=== PATIENT | female | born 1960 | race Caucasian/White ===

== ENCOUNTER 2016-11-01 12:18 | Observation (INO) | payer BC, OTHER ==
--- NOTE | 2016-11-01 14:20 | ER Document Report ---
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 At 11: 15 today started having numbness in left arm radiating into left face & neck and into right neck area. Also c/o left elbow pain. No hx ME or CAV. Mother had stroke. TRAVEL OUTSIDE OF THE [place] IN LAST 30 DAYS: No - Related Data Allergies/Adverse Reactions: tetracycline Allergy (Verified 11/01/16 13:16) Past Medical History Renal/ Medical History: Denies: Hx Peritoneal Dialysis
[2016-11-01 14:42] LABS: ABSOLUTE EOSINOPHILS # (AUTO) 0.1 10^3/uL (0.0-0.6); ABSOLUTE LYMPHOCYTES (AUTO) 1.5 10^3/uL (0.5-4.7); ABSOLUTE MONOCYTES (AUTO) 0.4 10^3/uL (0.1-1.4); ABSOLUTE NEUT (AUTO) 4.5 10^3/uL (1.7-8.2); BASOPHILS % (AUTO) 0.5 % (0-2); EOSINOPHILS % (AUTO) 1.1 % (0-6); HEMATOCRIT 37.3 % (36.0-47.0); HEMOGLOBIN 12.9 g/dL (12.0-15.5); HGB HCT DIFFERENCE 1.4; LYMPHOCYTES % (AUTO) 23.6 % (13-45); MEAN CORPUSCULAR HEMOGLOBIN 32.6 pg (27.0-33.4); MEAN CORPUSCULAR HGB CONC 34.7 g/dL (32.0-36.0); MEAN CORPUSCULAR VOLUME 94 fl (80-97); RED BLOOD COUNT 3.96 10^6/uL (3.72-5.28); SEGMENTED NEUTROPHILS % (AUTO) 68.8 % (42-78); WHITE BLOOD COUNT 6.5 10^3/uL (4.0-10.5)
[2016-11-01 14:43] LABS: PROTHROMBIN TIME 12.4 SEC (11.4-15.4)
[2016-11-01 14:44] LABS: PARTIAL THROMBOPLASTIN TIME 27.4 SEC (23.5-35.8)
[2016-11-01 15:18] LABS: ALANINE AMINOTRANSFERASE 66 U/L (9-52); ALBUMIN 4.4 g/dL (3.5-5.0); ALKALINE PHOSPHATASE 75 U/L (38-126); ANION GAP 11 (5-19); ASPARTATE AMINO TRANSFERASE 64 U/L (14-36); BILIRUBIN,DIRECT 0.1 mg/dL (0.0-0.4); BILIRUBIN,TOTAL 0.8 mg/dL (0.2-1.3); BLOOD UREA NITROGEN 13 mg/dL (7-20); CALCIUM 9.2 mg/dL (8.4-10.2); CARBON DIOXIDE 28 mmol/L (22-30); CHLORIDE 99 mmol/L (98-107); CREATINE KINASE 164 U/L (30-135); CREATININE RESULT 0.83 mg/dL (0.52-1.25); GLUCOSE 98 mg/dL (75-110); POTASSIUM 3.5 mmol/L (3.6-5.0); SODIUM 137.9 mmol/L (137-145)
[2016-11-01 15:29] LABS: CREATINE KINASE MB 1.59 ng/mL (<4.55)
[2016-11-01 15:30] LABS: TROPONIN I < 0.012 ng/mL
--- NOTE | 2016-11-01 16:13 | ER Document Report ---
ED Neuro Symptoms/Deficit - General Mode of Arrival: Wheelchair Information source: Patient TRAVEL OUTSIDE OF THE [place] IN LAST 30 DAYS: No - HPI Patient complains to provider of: Paresthesia - Left arm, Weakness - Left arm. No: Speech Impairment, Vision Changes Onset: Other - 2 days ago Baseline Cognitive: Alert, oriented X 3 Alert To: Name/Voice Patient Orientation: Person, Place, Time, Events New weakness: LUE Vision problem/glaucoma: No Associated symptoms: Other - See notes above <GAGE STORM - Last Filed: 11/01/16 19:28> <KARISSA TEJADA - Last Filed: 11/01/16 20:40> - General Chief Complaint: Numbness of Arm Stated Complaint: LEFT ARM WEAKNESS Notes: 56-year-old female with history of hypertension, hyperlipidemia, and family history of cardiac disease and CVA (Father had an CT at 47 and ; Mother had a CABGx4 at 65 and a CVA at 68) presents to the ED complaining of left arm weakness that started 2 days ago. 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 20 minutes later, the patient's arm began tingling, so she contacted the school administration and went to the nurse. EMS was called and while the patient was waiting, she developed numbness and tingling that radiated to the left leg, face , and neck. Patient is also complaining of left elbow pain, but denies any injury. Patient denies chest pain, shortness breath, headache, blurry vision, difficulty swallowing, or any speech impairment. Patient's primary care provider is Dr. Mcgowan. (GAGE STORM) - Related Data Allergies/Adverse Reactions: tetracycline Allergy (Verified 11/01/16 13:16) Past Medical History - General Information source: Patient - Social History Smoking Status: Never Smoker Chew tobacco use (# tins/day): No Frequency of alcohol use: Occasional Drug Abuse: None Family History: Reviewed & Not Pertinent Patient has suicidal ideation: No Patient has homicidal ideation: No - Past Medical History Cardiac Medical History: Reports: Hx Hypercholesterolemia, Hx Hypertension Denies: Hx Heart Attack Neurological Medical History: Denies: Hx Cerebrovascular Accident Endocrine Medical History: Denies: Hx Diabetes Mellitus Type 2 Renal/ Medical History: Denies: Hx Peritoneal Dialysis <GAGE STORM - Last Filed: 11/01/16 19:28> Review of Systems - Review of Systems Constitutional: No symptoms reported EENT: No symptoms reported. denies: Blurred vision, Double vision, Difficulty swallowing Cardiovascular: No symptoms reported. denies: Chest pain Respiratory: No symptoms reported. denies: Short of breath Gastrointestinal: No symptoms reported Genitourinary: No symptoms reported Female Genitourinary: No symptoms reported Musculoskeletal: See HPI, Joint pain - left elbow Skin: No symptoms reported Hematologic/Lymphatic: No symptoms reported Neurological/Psychological: See HPI, Weakness - left arm and leg, Headaches, Numbness - left arm, leg, neck and face., Tingling - left arm, leg, neck and face.. denies: Speech impairment -: Yes All other systems reviewed and negative <GAGE STORM - Last Filed: 11/01/16 19:28> Physical Exam <GAGE STORM - Last Filed: 11/01/16 19:28> <KARISSA TEJADA - Last Filed: 11/01/16 20:40> - Vital signs Vitals: Temp Pulse BP Pulse Ox 98.4 F 67 147/78 H 99 11/01/16 13:17 11/01/16 13:17 11/01/16 13:17 11/01/16 13:17 - Notes Notes: GENERAL: Alert, interacts well. No acute distress. HEAD: Normocephalic, atraumatic. EYES: Pupils equal, round, and reactive to light. Extraocular movements intact. ENT: Oral mucosa moist, tongue midline. LUNGS: Clear to auscultation bilaterally, no wheezes, rales, or rhonchi. No respiratory distress. HEART: Regular rate and rhythm. No murmurs, gallops, or rubs. ABDOMEN: Soft, non-tender. Non-distended. EXTREMITIES: Moves all 4 extremities spontaneously. No edema, radial and dorsalis pedis pulses 2/4 bilaterally. No cyanosis. NEUROLOGICAL: Alert and oriented x3. Normal speech. Slight weakness to the left arm than right. 5/5 rail express clerk strength bilaterally. No difficulty with sharp/soft differentiation. PSYCH: Normal affect, normal mood. SKIN: Warm, dry, normal turgor. No rashes or lesions noted. (GAGE STORM) Course - Laboratory Result Diagrams: 11/01/16 14:20 11/01/16 14:20 - Diagnostic Test Radiology reviewed: Image reviewed, Reports reviewed - There is subtle loss of medrano/white differentiation in the right parietal area on a single image as described. This could represent a developing infarct. MRI is more sensitive. <GAGE STORM - Last Filed: 11/01/16 19:28> - Laboratory Result Diagrams: 11/01/16 14:20 11/01/16 14:20 - Consults No standard instances Time consulted: 17:16 Consulted provider: will see as inpatient <KARISSA TJEADA - Last Filed: 11/01/16 20:40> - Re-evaluation Re-evalutation: 11/01/16 20:39 CBC unremarkable, coags normal, CMP shows slightly low potassium at 3.5, AST and ALT slightly elevated, cardiac enzymes negative 1, CT scan of the head reveals an area of possible infarct in the right parietal area. No evidence of acute bleed. Discussed with patient and family members why she is not a candidate for TPA as she is well out of the timeframe, symptoms started on the . Discussed with patient that she does appear to have an acute ischemic event. Discussed case with Dr. Heaton who agrees to admit the patient to her service in observation status. (KARISSA TEJAAD) - Vital Signs Vital signs: Temp Pulse Resp BP Pulse Ox 98.4 F 67 147/78 H 99 11/01/16 13:17 11/01/16 13:17 11/01/16 13:17 11/01/16 13:17 - Laboratory Laboratory results interpreted by me: 11/01/16 14:20 Potassium 3.5 L AST 64 H ALT 66 H Creatine Kinase 164 H - Consults No standard instances Reason for consultation: 11/01/16 17:[address] Heaton who accepts as observation for CVA. (KARISSA TEJADA) Discharge <GAGE STORM - Last Filed: 11/01/16 19:28> - Discharge Admitting Provider: Hospitalist - Dr. Heaton Unit Admitted: IMCU <KARISSA TEJADA - Last Filed: 11/01/16 20:40> - Discharge Clinical Impression: Acute CVA (cerebrovascular accident), Left arm weakness Condition: Fair Disposition: ADMITTED OBSERVATION Scribe Attestation: 11/01/16 20:40 I personally performed the services described in the documentation, reviewed and edited the documentation which was dictated to the scribe in my presence, and it accurately records my words and actions. (KARISSA TEJADA) Scribe Documentation - Scribe Written by Jennifer:: Jennifer Hernandez, 11/01/2016 [id number] acting as scribe for :: Art <GAGE STORM - Last Filed: 11/01/16 19:28> ED NIH Stroke Scale - NIH Stroke Scale When completed:: Protocol *: 1. NIH scale should be completed with appropriate accompanying assessment tools. *: 2. The NIH should reflect what the patient is capable of doing and should not be coached by the clinician. 1a. Level of Consciousness: 0=Alert;keenly responsive -: 1=Drowsy -: 2=Obtunded -: 3=Coma/unresponsive or reflex to noxious stimuli. 1a. Responses: 0 1b. Orientation Questions: a. What month is it? -: b. How old are you? -: 0=Answers both questions correctly. -: 1=Answers one question correctly or patient is intubated or has orotracheal trauma. -: 2=Answers neither question correctly. 1b. Responses: 0 1c. Response to commands: a. Open and close eyes? -: b. Senior Cytotechnologist and release hand? -: Credit is given despite weakness. Demonstration of task is permitted. Substitute command if hands cannot be used. -: 0=Performs both tasks correctly -: 1=Performs one task correctly -: 2=Performs neither task correctly 1c. Responses: 0 2. Gaze: Establish eye contact and instruct patient to "Follow my finger" -: 0=Normal -: 1=Partial gaze palsy. Gaze is abnormal in one or both eyes, but where forced deviation or total gaze paresis is not present. -: 2=Forced deviation or total gaze paresis. 2. Responses: 0 3. Visual Calles: Sees fingers in all four quadrants. -: 0=No visual loss. -: 1=Partial hemianopsia. -: 2=Complete hemianopsia. -: 3=Bilateral hemianopsia (including Cortical blindness) 3. Responses: 0 4. Facial Movement: Instruct patient to: -: a. Show me your teeth -: b. Raise your eyebrows -: c. Close your eyes -: d. Smile -: 0=Normal symmetrical movement -: 1=Minor paralysis (flattened nasolabial fold, asymmetry on smiling). -: 2=Partial paralysis (total or near total paralysis of lower face). -: 3=Complete paralysis of upper and lower face 4. Responses: 0 5. Motor functions (left arm): Alternate sides and extend each arm with palms down (90 degrees if sitting or 45 degrees for supine). -: 0=No drift;limb holds for full 10 seconds. -: 1=Drift; limb holds but drifts down before full 10 seconds, but does not hit bed. -: 2=Some effort against gravity; limb cannot get to or maintain position. -: 3=No effort against gravity; limb falls. -: 4=No movement. -: UN=Amputation, joint fusion, explain in comments. 5. Responses (left arm): 0 5. Motor Functions (right arm): Alternate sides and extend each arm with palms down (90 degrees if sitting or 45 degrees for supine). -: 0=No drift;limb holds for full 10 seconds. -: 1=Drift; limb holds but drifts down before full 10 seconds, but does not hit bed. -: 2=Some effort against gravity; limb cannot get to or maintain position. -: 3=No effort against gravity; limb falls. -: 4=No movement. -: UN=Amputation, joint fusion, explain in comments. 5. Responses (right arm): 0 6. Motor Functions (left leg): With patient lying supine, alternate sides and extend each leg (30 degrees always while supine). -: 0=No drift, leg holds position for full 5 seconds -: 1=Drift; leg falls before full 5 seconds but does not hit bed. -: 2=Some effort against gravity, leg falls to bed but some effort against gravity. -: 3=No effort against gravity, leg falls to bed immediately. -: 4=No movement. -: UN=Amputation, joint fusion; explain in comments. 6. Responses (left leg): 0 6. Motor Functions (right leg): With patient lying supine, alternate sides and extend each leg (30 degrees always while supine). -: 0=No drift, leg holds position for full 5 seconds -: 1=Drift; leg falls before full 5 seconds but does not hit bed. -: 2=Some effort against gravity, leg falls to bed but some effort against gravity. -: 3=No effort against gravity, leg falls to bed immediately. -: 4=No movement. -: UN=Amputation, joint fusion; explain in comments. 6. Responses (right leg): 0 7. Limb Ataxia: With eyes open instruct patient to: -: a. "Touch your finger to your nose". -: b. "Touch your heel to your noriega" -: 0=Absent -: 1=Present in one limb. -: 2=Present in two limbs. -: UN=Amputation or joint fusion; explain in comments. 7. Responses: 0 8. Sensory: Test sensation using pinprick or noxious stimuli. Test as many body parts as possible. -: 0=Normal;no sensory loss -: 1=Mile to moderate sensory loss (patient feels pin prick but is less sharp on affected side). -: 2=Severe or total sensory loss. 8. Responses: 0 9. Best Language: Instruct patient to: -: a. "Describe what you see in this picture." -: b. "Name the items in this picture." -: c. "Read these sentences." -: 0=No aphasia, normal -: 1=Mild to moderate aphasia. -: 2=Severe aphasia -: 3=Mute, global aphasia, no usable speech or auditory comprehension. 9. Responses: 0 10. Articulation, Dysarthia: Instruct patient to: -: "Read these words" or "Repeat these words" -: 0=Normal -: 1=Mild to moderate; patient may slur some words but can be understood without difficulty. -: 2=Severe; patients speech so slurred as to be unintelligible in the absence of dysphasia. -: UN=Intubated or other physical barrier, explain in comments. 11. Extinction or inattention: 0=No abnormality -: 1= Visual, tactile, auditory, spatial, or personal inattention or extinction to bilateral simulation in one or the sensory modalities. -: 2=Profound wendi-inattention or wendi-inattention to more than one modality; does not recognize own hand. 11. Responses: 0 Total Score: 0 <KARISSA TEJADA - Last Filed: 11/01/16 20:40> ED Alteplase Inc/Exc Criteria - Date/Time patient last known well: Date/Time: 10/30/16 - Date/Time patient arrived in ED: _: 11/01/16 - Inclusion Criteria: 1: Patient presented to ED within 3 hours of acute ischemic stroke symptom onset ? -: No 2: Did baseline CT exclude intracranial hemorrhage and/or other risk factors? -: Yes 3: Is the age of the patient 18 years of age or greater? -: Yes : If any of the above questions are answered "NO" then stop, patient is not a candidate for Alteplase, : If all of the above questions are answered "YES" then continue with Exclusion Criteria. - The patient is: -: Included and is eligible to receive Alteplase. *Initiate bed placement at higher level of care* --: No Reviewd risks & benefits of thrombolytic therapy: I have reviewed the risks and benefits of thrombolytic therapy with the patient and/or his/her family. -: Excluded and not eligible to receive Alteplase for the above exclusions. --: Yes - symptoms onset 2 days ago -: Excluded and not eligible to receive Alteplase for other reasons (specify in comments): - Diagnosis of TIA: -: Patient presented with transient symptoms that are now resolved and no other neurologic findings are currently present. List symptoms in comments. -: Patient is NOT a candidate for tPA. -: Yes -: ____(put name in comment) has been consulted for admission and continued evaluation of risk factor assessment. Comment: Dr. Heaton <KARISSA TEJADA - Last Filed: 11/01/16 20:40>
[2016-11-01] MEDS ORDERED: ASPIRIN 325 MG TABLET PO ONE (17:17)
--- NOTE | 2016-11-01 18:18 | EKG REPORT ---
SEVERITY:- OTHERWISE NORMAL ECG - SINUS BRADYCARDIA : Confirmed by: Matt Madsen MD 01-Nov-2016 18:16:59
[2016-11-01] MEDS ORDERED: ACETAMINOPHEN 325 MG TABLET PO PRN (19:01)
[2016-11-01] MEDS ORDERED: HYDROCODONE/ACETAMINOPHEN 5-325 MG TABLET PO PRN (19:01)
[2016-11-01] MEDS ORDERED: ONDANSETRON 4 MG TAB.RAPDIS PO PRN (19:01)
[2016-11-01] MEDS ORDERED: MAGNESIUM HYDROXIDE SUSP 30 ML UDCUP PO PRN (19:01)
[2016-11-01] MEDS ORDERED: DOCUSATE SODIUM 100 MG CAPSULE PO PRN (19:01)
[2016-11-01] MEDS ORDERED: LABETALOL HCL INJ 20 MG/4 ML DISP.SYRIN IV PRN (19:01)
[2016-11-01] MEDS ORDERED: LORAZEPAM INJ 2 MG/1 ML VIAL IV ONE (19:07)
--- NOTE | 2016-11-01 19:32 | PDOC H&P ---
History of Present Illness Admission Date/PCP: 11/01/16 17:46 COOPER MONTENEGRO MD History of Present Illness: JACK GE is a 56 year old female with history of hypertension, hyperlipidemia, and family history of cardiac disease and CVA (Father had an MO at 47 and ; Mother had a CABGx4 at 65 and a CVA at 68) presents to the ED complaining of left arm weakness that started 2 days ago. 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 Subsequently, 20 minutes later, the patient's arm began tingling and she developed numbness and tingling in the left leg, face, and arm. Patient is also complaining of left elbow pain, but denies any injury. On CT patient has felt to have a possible early developing CVA. She is referred to hospital service for this. Patient reports having had outpatient lab work done 2 weeks ago and was told at that time that her cholesterol was perfect and her hemoglobin A1c was less than 6. Home medications are currently undergoing reconciliation and current list is automatically generated by [employer]. Patient's home medications include losartan, Crestor, Celebrex, hormone replacement, Celexa, vyvanase, multivitamin , fish oil, co-every 10, vitamin D, voltaren gel. Past Medical History Cardiac Medical History: Reports: Hyperlipidema, Hypertension Denies: Myocardial Infarction Endocrine Medical History: Denies: Diabetes Mellitus Type 2 Past Surgical History Past Surgical History: Reports: Gastric Bypass Surgery, Other - Partial nephrectomy for benign tumor Discectomy Social History Smoking Status: Never Smoker Frequency of Alcohol Use: Occasional Hx Recreational Drug Use: No Hx Prescription Drug Abuse: No - Advance Directive Resuscitation Status: Full Code Surrogate healthcare decision maker:: Mari Arroyo, sister Family History Family History: CAD, CVA, DM, Hyperlipidemia, Hypertension Parental Family History Reviewed: Yes Children Family History Reviewed: NA Sibling(s) Family History Reviewed.: Yes Medication/Allergy Allergies/Adverse Reactions: tetracycline Allergy (Verified 11/01/16 13:16) Review of Systems Constitutional: ABSENT: chills, fever(s), headache(s), weight gain, weight loss Eyes: ABSENT: visual disturbances Ears: ABSENT: hearing changes Nose, Mouth, and Throat: ABSENT: vertigo Cardiovascular: ABSENT: chest pain, dyspnea on exertion, edema, orthropnea, palpitations Respiratory: ABSENT: cough, dyspnea, hemoptysis, sputum Gastrointestinal: PRESENT: constipation. ABSENT: abdominal pain, diarrhea, hematemesis, hematochezia, nausea, vomiting Genitourinary: PRESENT: other - Patient admits to occasional vaginal bleeding. ABSENT: dysuria, hematuria Musculoskeletal: ABSENT: joint swelling Integumentary: ABSENT: rash, wounds Neurological: ABSENT: abnormal gait, abnormal speech, confusion, dizziness, focal weakness, syncope Psychiatric: ABSENT: anxiety, depression, homidical ideation, suicidal ideation Endocrine: ABSENT: cold intolerance, heat intolerance, polydipsia, polyuria Hematologic/Lymphatic: ABSENT: easy bleeding, easy bruising Physical Exam Vital Signs: Temp Pulse Resp BP Pulse Ox 98.4 F 67 147/78 H 99 11/01/16 13:17 11/01/16 13:17 11/01/16 13:17 11/01/16 13:17 General appearance: PRESENT: no acute distress, cooperative, obese, well- developed, well-nourished Head exam: PRESENT: atraumatic, normocephalic Eye exam: PRESENT: conjunctiva pink, EOMI, PERRLA. ABSENT: conjunctival injection, scleral icterus Ear exam: PRESENT: normal external ear exam Mouth exam: PRESENT: moist, tongue midline, other Neck exam: ABSENT: carotid bruit, JVD, lymphadenopathy, thyromegaly, tracheal deviation Respiratory exam: PRESENT: clear to auscultation dana, symmetrical, unlabored. ABSENT: crackles, rales, rhonchi, tachypnea, wheezes Cardiovascular exam: PRESENT: RRR, +S1, +S2. ABSENT: diastolic murmur, gallop, rubs, systolic murmur, tachycardia Pulses: PRESENT: normal dorsalis pedis pul Vascular exam: PRESENT: normal capillary refill GI/Abdominal exam: PRESENT: normal bowel sounds, soft. ABSENT: distended, firm , guarding, mass, Fox's sign, organolmegaly, rebound, rigid, tenderness Rectal exam: PRESENT: deferred Extremities exam: PRESENT: full ROM. ABSENT: calf tenderness, clubbing, pedal edema Musculoskeletal exam: PRESENT: full ROM Neurological exam: PRESENT: alert, awake, oriented to person, oriented to place , oriented to time, oriented to situation, CN II-XII grossly intact, motor sensory deficit - Mild perceived weakness of left arm Psychiatric exam: PRESENT: appropriate affect, normal mood. ABSENT: homicidal ideation, suicidal ideation Skin exam: PRESENT: dry, intact, warm. ABSENT: cyanosis, rash Results Impressions: Chest X-Ray 11/01/16 14:13 IMPRESSION: NO ACUTE RADIOGRAPHIC FINDING IN THE CHEST. Head CT 11/01/16 14:13 IMPRESSION: There is subtle loss of medrano/ white differentiation in the right parietal area on a single image as described. This could represent a developing infarct. MRI is more sensitive. Assessment & Plan - Diagnosis (1) Acute CVA (cerebrovascular accident) Is this a current diagnosis for this admission?: YesPlan: Place patient on IMCU for observation. Obtain a stat MRI. Obtain bilateral carotid studies as well as echocardiogram. Will have patient see occupational therapy. Will place patient on aspirin. Patient reports having been on aspirin prior to her gastric bypass was instructed not to continue to take it after this. Will also have a 30 day event monitor established for this patient. Have concerns for familial predisposition to atherosclerotic disease. (2) Hypertension Qualifiers: Hypertension type: essential hypertension Qualified Code(s): I10 - Essential (primary) hypertension Is this a current diagnosis for this admission?: YesPlan: At this time we'll allow for permissive hypertension due to possible acute CVA (3) Hyperlipidemia Qualifiers: Hyperlipidemia type: unspecified Qualified Code(s): E78.5 - Hyperlipidemia, unspecified Is this a current diagnosis for this admission?: YesPlan: Place patient on Lipitor 80. Patient reports that her PCP recently obtained her labs within the last 2 weeks. Will not repeat. (4) Status post gastric bypass for obesity Is this a current diagnosis for this admission?: Yes (5) Vaginal bleeding Is this a current diagnosis for this admission?: YesPlan: Patient has an outpatient follow-up appointment for this. Will have to stop her DVT prophylaxis if this becomes an issue. Have discussed with patient stopping her hormone replacement therapy. (6) Severe obesity (BMI 35.0-35.9 with comorbidity) Is this a current diagnosis for this admission?: YesPlan: Encourage weight loss. - Time Time Spent: 50 to 70 Minutes Medications reviewed and adjusted accordingly: Yes Anticipated discharge: Home Within: within 24 hours - Inpatient Certification Based on my medical assessment, after consideration of the patient's comorbidities, presenting symptoms, or acuity I expect that the services needed warrant INPATIENT care.: No I certify that my determination is in accordance with my understanding of Medicare's requirements for reasonable and necessary INPATIENT services [42 CFR 412.3e].: No Medical Necessity: Need for Neurological Checks
[2016-11-01] MEDS ORDERED: ENOXAPARIN SODIUM INJ 40 MG/0.4 ML DISP.SYRIN SUBCUT ONE (20:00)
[2016-11-01 21:05] LABS: CREATINE KINASE MB 1.36 ng/mL (<4.55)
[2016-11-01 21:07] LABS: TROPONIN I < 0.012 ng/mL
[2016-11-01] MEDS ORDERED: ATORVASTATIN CALCIUM 80 MG TABLET PO SCH (22:00)
[2016-11-01] MEDS: NORMAL SALINE 1000 ML 1,000 ML IV PRN (22:47)
[2016-11-02 02:30] LABS: CREATINE KINASE MB 1.09 ng/mL (<4.55)
[2016-11-02 02:42] LABS: TROPONIN I < 0.012 ng/mL
[2016-11-02] MEDS: NORMAL SALINE 1000 ML 1,000 ML IV PRN (07:06)
[2016-11-02] MEDS ORDERED: ENOXAPARIN SODIUM INJ 40 MG/0.4 ML DISP.SYRIN SUBCUT SCH (08:00)
[2016-11-02] MEDS ORDERED: POTASSIUM CHLORIDE 10 MEQ TABLET.SA PO ONE (08:30)
[2016-11-02 08:47] LABS: CREATINE KINASE MB 1.06 ng/mL (<4.55)
[2016-11-02 08:51] LABS: TROPONIN I < 0.012 ng/mL
[2016-11-02] MEDS ORDERED: (PENDING PHARMACY ID) (Fish Oil/Dha/Epa [Fish Oil 1,200 Mg Fish Oil] 1,200 MG) PO SCH (10:00)
[2016-11-02] MEDS ORDERED: (PENDING PHARMACY ID) (Pantoprazole Sodium [Protonix] 20 MG) PO SCH (10:00)
[2016-11-02] MEDS ORDERED: CELECOXIB 200 MG CAPSULE PO SCH (10:00)
[2016-11-02] MEDS ORDERED: (PENDING PHARMACY ID) (Diclofenac Sodium [Diclofenac Sodium] 4 GM) TOP SCH (10:00)
[2016-11-02] MEDS ORDERED: MULTIVITAMIN TABLET PO SCH (10:00)
[2016-11-02] MEDS ORDERED: ASPIRIN 325 MG TABLET, ENT COATED PO SCH (10:00)
[2016-11-02] MEDS ORDERED: [UNRECOGNIZED DRUG - OTHER] PO SCH (10:00)
[2016-11-02] MEDS ORDERED: OMEGA-3 ACID ETHYL ESTERS 1 GM CAPSULE PO SCH (10:00)
[2016-11-02] MEDS ORDERED: CHOLECALCIFEROL (D3) 1,000 UNIT TABLET PO SCH (10:00)
[2016-11-02] MEDS ORDERED: LEVOTHYROXINE SODIUM 0.075 MG TABLET PO SCH (10:00)
[2016-11-02] MEDS ORDERED: LANSOPRAZOLE 15 MG TAB.RAP.DR PO SCH (10:00)
[2016-11-02 12:28] VITALS: BP 121/59
--- NOTE | 2016-11-02 19:10 | XCELERA REPORT ---
[address] [address] Transthoracic Echocardiogram Report Name: JACK GE Age: 56 yrs Gender: Female : 1960 Patient Status: Inpatient Patient Location: [id number]\S\333\S\A Study Date: 11/02/2016 01:22 PM Height: 67 in Weight: 230 lb BSA: 2.1 m2 Procedure: A complete two-dimensional transthoracic echocardiogram was performed (2D, M-mode, spectral and color flow Doppler). The study was technically difficult with many images being suboptimal in quality. Reason For Study: acute cva Ordering Physician: CLAUDIA LAUREN Performed By: Yuki Macario Interpretation Summary The study was technically difficult with many images being suboptimal in quality. The left ventricular ejection fraction is normal. Doppler measurements suggest impaired left ventricular relaxation, which is associated with grade I/IV or mild diastolic dysfunction There is borderline concentric left ventricular hypertrophy. The left ventricle is grossly normal size. Wall motion cannot be accurately commented on, but no definite regional wall motion abnormalities noted. Borderline right ventricular enlargement. The right ventricular systolic function is normal. The right atrium is normal in size The left atrium is mildly dilated. There is a trace amount of mitral regurgitation There is no mitral valve stenosis. No aortic regurgitation is present. There is no aortic valve stenosis There is a trace or physiologic amount of tricuspid regurgitation Tricuspid regurgitation jet envelope not well defined to measure RV systolic pressure accurately. The aortic root is not well visualized. The inferior vena cava appeared normal and decreased > 50% with respiration (RAP 5-10 mmHg) There is no pericardial effusion. No definite cardiac source of CVA/TIA noted on this particular trans- thoracic study. Consider GLENNY if clinically indicated. May consider mobile cardiac telemetry monitoring (MCT) for ruling out transient AFIB. MMode/2D Measurements \T\ Calculations RVDd: 2.5 cm LVIDd: 5.2 cm FS: 38.8 % Ao root diam: 3.4 cm IVSd: 0.92 cm LVIDs: 3.2 cm EDV(Teich): 127.8 ml LVPWd: 0.90 cmESV(Teich): 39.8 ml Ao root area: 9.2 cm2 EF(Teich): 68.9 % LA dimension: 3.8 cm LVOT diam: 2.0 cm LVOT area: 3.1 cm2 Doppler Measurements \T\ Calculations MV E max garrick: MV P1/2t max garrick: Ao V2 max: LV V1 max P.5 cm/sec 76.2 cm/sec 118.4 cm/sec 3.3 mmHg MV A max garrick: MV P1/2t: 65.8 msec Ao max PG: LV V1 max: 50.7 cm/sec MVA(P1/2t): 3.3 cm2 5.6 mmHg 90.7 cm/sec MV E/A: 1.5 MV dec slope: IDALIA(V,D): 2.4 cm2 339.5 cm/sec2 PA V2 max: TR max garrick: 64.7 cm/sec 205.6 cm/sec PA max PG: TR max P.9 mmHg 1.7 mmHg Left Ventricle The left ventricle is grossly normal size. There is borderline concentric left ventricular hypertrophy. The left ventricular ejection fraction is normal. Doppler measurements suggest impaired left ventricular relaxation, which is associated with grade I/IV or mild diastolic dysfunction. Wall motion cannot be accurately commented on, but no definite regional wall motion abnormalities noted. Right Ventricle Borderline right ventricular enlargement. There is normal right ventricular wall thickness. The right ventricular systolic function is normal. Atria The right atrium is normal in size. The left atrium is mildly dilated. Interarterial septum not well visualized and not well dopplered. Cannot comment on ASD/PFO presence. Mitral Valve The mitral valve is grossly normal. There is no mitral valve stenosis. There is a trace amount of mitral regurgitation. Aortic Valve The aortic valve is grossly normal. There is no aortic valve stenosis. No aortic regurgitation is present. Tricuspid Valve The tricuspid valve is not well visualized secondary to technical limitations. There is no tricuspid stenosis. There is a trace or physiologic amount of tricuspid regurgitation. Tricuspid regurgitation jet envelope not well defined to measure RV systolic pressure accurately. Pulmonic Valve The pulmonic valve is not well visualized. Great Vessels The aortic root is not well visualized. The inferior vena cava appeared normal and decreased > 50% with respiration (RAP 5-10 mmHg). Effusions There is no pericardial effusion. Incidental Findings No definite cardiac source of CVA/TIA noted on this particular trans- thoracic study. Consider GLENNY if clinically indicated. May consider mobile cardiac telemetry monitoring (MCT) for ruling out transient AFIB. : CLAUDIA LAUREN > Chelsea Ludwig
[2016-11-02] MEDS ORDERED: CITALOPRAM HYDROBROMIDE 20 MG TABLET PO SCH (22:00)
[2016-11-02] MEDS ORDERED: (PENDING PHARMACY ID) (Citalopram Hydrobromide [Celexa 40 Mg Tablet] 40 MG) PO SCH (22:00)
--- NOTE | 2016-11-03 08:03 | PDOC DISCHARGE SUMMARY ---
General - Admit/Disc Date/PCP Admission Date/Primary Care Provider: 11/01/16 18:53 COOPER MONTENEGRO MD Discharge Date: 11/02/16 - Discharge Diagnosis (1) TIA (transient ischemic attack) Is this a current diagnosis for this admission?: Yes (2) Hypertension Is this a current diagnosis for this admission?: Yes (3) Hyperlipidemia Is this a current diagnosis for this admission?: Yes (4) Status post gastric bypass for obesity Is this a current diagnosis for this admission?: Yes (5) Vaginal bleeding Is this a current diagnosis for this admission?: Yes (6) Hypothyroidism Is this a current diagnosis for this admission?: Yes (7) Severe obesity (BMI 35.0-35.9 with comorbidity) Is this a current diagnosis for this admission?: Yes - Additional Information Resuscitation Status: Full Code Discharge Diet: Cardiac Discharge Activity: Activity As Tolerated, Slowly Increase Activity Home Medications: Celecoxib 200 mg PO Q12 11/01/16 Cholecalciferol (Vitamin D3) [Vitamin D3 5000 unit Capsule] 5,000 unit PO Q12 Citalopram Hydrobromide [Celexa 40 mg Tablet] 40 mg PO QHS 11/01/16 Co Q-10 1 tab PO Q12 11/01/16 Diclofenac Sodium 4 gm TOP Q12 11/01/16 Fish Oil/Dha/Epa [Fish Oil 1,200 mg Fish Oil] 1,200 mg PO DAILY 11/01/16 Gluc Garcia/Chondro Garcia A/Vit C/Mn [Glucosamine 1,500 Complex Cap] 1 cap PO Q12 11/01 Levothyroxine Sodium [Synthroid 0.075 mg Tablet] 75 mcg PO DAILY 11/01/16 Losartan/Hydrochlorothiazide [Hyzaar 50-12.5 Tablet] 1 tab PO DAILY 11/01/16 Multivitamin [Daily Multiple Vitamin] 1 tab PO DAILY 11/01/16 Pantoprazole Sodium [Protonix] 20 mg PO Q12 11/01/16 Rosuvastatin Calcium 20 mg PO QHS 11/01/16 Aspirin [Aspirin EC] 81 mg PO BID #1 pkg 11/02/16 Docusate Sodium [Colace 100 mg Capsule] 100 mg PO BIDP PRN capsule 11/02/16 Hydrocodone/Acetaminophen [[place] 5-325 mg Tablet] 1 tab PO Q6HP PRN #10 tablet 11/02/16 History of Present Illness History of Present Illness: JACK GE is a 56 year old female with history of hypertension, hyperlipidemia, and family history of cardiac disease and CVA (Father had an IL at 47 and ; Mother had a CABGx4 at 65 and a CVA at 68) presents to the ED complaining of left arm weakness that started 2 days ago. 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 Subsequently, 20 minutes later, the patient's arm began tingling and she developed numbness and tingling in the left leg, face, and arm. Patient is also complaining of left elbow pain, but denies any injury. On CT patient has felt to have a possible early developing CVA. She is referred to hospital service for this. Patient reports having had outpatient lab work done 2 weeks ago and was told at that time that her cholesterol was perfect and her hemoglobin A1c was less than 6. Home medications are currently undergoing reconciliation and current list is automatically generated by [employer]. Patient's home medications include losartan, Crestor, Celebrex, hormone replacement, Celexa, vyvanase, multivitamin , fish oil, co-every 10, vitamin D, voltaren gel. Hospital Course Hospital Course: Patient was placed on IMCU and monitored for any evolution of possible CVA. Patient had complete resolution of her symptoms although she continued to have some bilateral elbow pain right worse than left which appears to be lateral epicondylitis. Patient underwent MRI which was negative for acute CVA. Patient underwent carotid Doppler which was negative and echocardiogram which revealed mild grade 1 diastolic dysfunction. At this time I discussed with patient obtaining a an outpatient referral to cardiology for holter monitor, stress test, and possible evaluation for sleep apnea. Patient is advised to follow with her primary care physician for evaluation of her arm pain. The remainder of her course was unremarkable. Physical Exam Vital Signs: Temp Pulse Resp BP Pulse Ox 98.2 F 50 L 18 121/59 L 100 11/02/16 15:55 11/02/16 15:55 11/02/16 15:55 11/02/16 12:00 11/02/16 15:55 Intake & Output 11/02/16 11/03/16 11/04/16 06:59 06:59 06:59 Intake Total 1215 702 Output Total 400 Balance 1215 302 Weight 103.1 kg Exam: General: Awake alert and oriented x3, no acute respiratory distress HEENT: AT/NC, PERRL, EOMI, oropharynx is moist, pink, no scleral icterus, no conjunctival injection Neck: No JVD, trachea midline Chest: Clear to auscultation bilaterally, no wheezes rhonchi or rales CV: Regular rate and rhythm, normal S1 and S2, no murmur, rub, or gallop Abdomen: Soft, nontender to palpation, nondistended, active bowel sounds; no rebound, rigidity, or guarding Extremities: No cyanosis, clubbing or edema Neuro: Cranial nerves II through XII are grossly intact without focal deficits; awake alert and oriented x3 Psych: Normal mood and affect Results Laboratory Results: 11/01/16 11/01/16 11/02/16 20:05 20:05 01:54 Creatine Kinase 132 119 CK-MB (CK-2) 1.36 Troponin I < 0.012 11/02/16 11/02/16 11/02/16 01:54 07:52 07:52 Creatine Kinase 104 CK-MB (CK-2) 1.09 1.06 Troponin I < 0.012 < 0.012 Impressions: Chest X-Ray 11/01/16 14:13 IMPRESSION: NO ACUTE RADIOGRAPHIC FINDING IN THE CHEST. Head CT 11/01/16 14:13 IMPRESSION: There is subtle loss of medrano/ white differentiation in the right parietal area on a single image as described. This could represent a developing infarct. MRI is more sensitive. Head MRI 11/01/16 18:56 IMPRESSION: Negative for acute or subacute infarction. NO ENHANCING LESIONS. Carotid Doppler Study 11/02/16 00:00 IMPRESSION: NO HEMODYNAMICALLY SIGNIFICANT STENOSIS. Qualifiers PATEINT BEING DISCHARGED WITH ANY OF THE FOLLOWING DIAGNOSIS?: No Plan Time Spent: Less than 30 Minutes
== END 2016-11-02 16:45 | disposition home or self-care (01) ==
LOC: ER 12:18 → EH 17:46 → UNDOADMIN 17:46 → INTOOBSV 18:53 → EH 18:53 → 3S 23:43
PROVIDERS: ADMIT Family Medicine; ATTEND Family Medicine
DX: G45.9 Transient cerebral ischemic attack, unspecified (principal); I10 Essential (primary) hypertension; E78.5 Hyperlipidemia, unspecified; Z98.84 Bariatric surgery status; N93.9 Abnormal uterine and vaginal bleeding, unspecified; M25.522 Pain in left elbow; M25.521 Pain in right elbow; Z68.35 Body mass index [BMI] 35.0-35.9, adult; Z82.3 Family history of stroke; Z82.49 Family history of ischemic heart disease and other diseases of the circulatory system; Z79.82 Long term (current) use of aspirin; Z79.899 Other long term (current) drug therapy; I51.89 Other ill-defined heart diseases; Z90.5 Acquired absence of kidney; Z79.890 Hormone replacement therapy
CPT/HCPCS: 93005; 99285; 96372; 96374; 36415 ×2; 82553 ×2; 82550 ×2; 85025; 85610; 85730; 80053; 84484 ×2; 93306; 93880; 70553; 71010; 70450; 93010; 97165; 97167; G0378 ×3; J1650 ×2; J2060; J7030 ×2

== ENCOUNTER → 2016-11-11 | Outpatient (CLI) | payer OTHER | LOC: RAD 16:32 | PROVIDERS: ATTEND Family Medicine | DX: M50.00 Cervical disc disorder with myelopathy, unspecified cervical region (principal) | CPT/HCPCS: 72141 ==

== ENCOUNTER → 2016-11-25 | Outpatient (CLI) | payer OTHER ==
--- NOTE | 2016-11-26 09:13 | RADIOLOGY REPORT (SQ) ---
EXAM DESCRIPTION: MRI PELVIS COMBO COMPLETED DATE/TIME: 11/25/2016 4:46 pm REASON FOR STUDY: OVARIAN MASS N83.201 UNSPECIFIED OVARIAN CYST, RIGHT SIDE COMPARISON: None. TECHNIQUE: Multiplanar multisequence imaging performed without and with contrast including axial, sa gittal and coronal T2, axial T, axial gradient fat sat T1, axial, sagittal and coronal fat sat T2 pos t contrast. CONTRAST TYPE AND DOSE: 20 mL Prohance. RENAL FUNCTION: GFR > 60. LIMITATIONS: None. FINDINGS: BLADDER AND URETHRA: No focal bladder wall thickening or nodularity. Smooth mucosa. The urethra has smooth contour with no focal asymmetry. No abnormal enhancement. No focal lesions. PELVIC SOFT TISSUES: Normal. No masses. UTERUS: Uterus measures 8 x 4.6 x 4.7 cm in size, fundus is tipped into the right hemipelvis. Along the uterine fundus, a 4 x 4.5 cm enhancing fibroid is present. There is a 2 cm nabothian cyst along the high cervix. This is best shown on coronal image 19. RIGHT OVARY: The right ovary is not identified in the field of view, from the perineum to the pelvic inlet. There is active peristalsis in colon and small bowel in the field of view. LEFT OVARY: Left ovary is not identified in the field of view from the perineum to the pelvic inlet. There is active peristalsis in colon and small bowel in the field of view. FREE FLUID: None. PELVIC SKELETAL STRUCTURES: No abnormal marrow signal. EXTRA PELVIS SOFT TISSUES: No masses. OTHER: No free pelvic fluid. No adenopathy. Findings discussed with Dr. Diaz. IMPRESSION: Nonvisualization of the ovaries by MRI 4 x 4.5 cm uterine fundal fibroid 2 cm nabothian cyst TECHNICAL DOCUMENTATION: JOB ID: [id number] [employer]- All Rights Reserved
== END ==
LOC: RAD 15:48
PROVIDERS: ATTEND Specialist
DX: N83.201 Unspecified ovarian cyst, right side (principal); D25.9 Leiomyoma of uterus, unspecified
CPT/HCPCS: 72197; A9576

== ENCOUNTER 2017-01-07 07:18 | Day surgery (SDC) | payer OTHER ==
[2017-01-05 12:08] LABS: HEMATOCRIT 36.7 % (36.0-47.0); HEMOGLOBIN 12.4 g/dL (12.0-15.5); HGB HCT DIFFERENCE 0.5; MEAN CORPUSCULAR HGB CONC 33.8 g/dL (32.0-36.0); MEAN CORPUSCULAR VOLUME 95 fl (80-97); RED BLOOD COUNT 3.88 10^6/uL (3.72-5.28); RED CELL DISTRIBUTION WIDTH 13.8 % (11.5-14.0); WHITE BLOOD COUNT 4.9 10^3/uL (4.0-10.5)
[2017-01-05 12:15] LABS: APPEARANCE,URINE CLEAR; BILIRUBIN,URINE NEGATIVE (NEGATIVE); GLUCOSE, URINE NEGATIVE (NEGATIVE); KETONES,URINE NEGATIVE (NEGATIVE); LEUKOCYTE ESTERASE,URINE SMALL (NEGATIVE); NITRITE,URINE NEGATIVE (NEGATIVE); PROTEIN,URINE NEGATIVE (NEGATIVE); URINE SPECIFIC GRAVITY 1.009; UROBILINOGEN,URINE NEGATIVE mg/dL (<2.0)
[2017-01-05 12:35] LABS: ANION GAP 10 (5-19); BLOOD UREA NITROGEN 14 mg/dL (7-20); CALCIUM 8.7 mg/dL (8.4-10.2); CARBON DIOXIDE 28 mmol/L (22-30); CHLORIDE 101 mmol/L (98-107); CREATININE RESULT 0.95 mg/dL (0.52-1.25); GLUCOSE 76 mg/dL (75-110); POTASSIUM 4.2 mmol/L (3.6-5.0); SODIUM 138.6 mmol/L (137-145)
--- NOTE | 2017-01-05 12:58 | EKG REPORT ---
SEVERITY:- NORMAL ECG - SINUS RHYTHM : Confirmed by: Matt Madsen MD 05-Jan-2017 12:57:32
--- NOTE | 2017-01-05 14:34 | RADIOLOGY REPORT (SQ) ---
EXAM DESCRIPTION: CHEST PA/LATERAL COMPLETED DATE/TIME: 01/05/2017 12:24 pm REASON FOR STUDY: PRE OP COMPARISON: PA chest 11/01/2016 EXAM PARAMETERS: NUMBER OF VIEWS: two views TECHNIQUE: Digital Frontal and Lateral radiographic views of the chest acquired. RADIATION DOSE: NA LIMITATIONS: none FINDINGS: LUNGS AND PLEURA: No opacities, masses or pneumothorax. No pleural effusion. MEDIASTINUM AND HILAR STRUCTURES: No masses or contour abnormalities. HEART AND VASCULAR STRUCTURES: Heart normal size. No evidence for failure. BONES: No acute findings. HARDWARE: None in the chest. OTHER: No other significant finding. IMPRESSION: NO SIGNIFICANT RADIOGRAPHIC FINDING IN THE CHEST. TECHNICAL DOCUMENTATION: JOB ID: [id number] [employer]- All Rights Reserved
[~2017-01-07 07:18] MED LIST: CEFAZOLIN 1 GM/D5W RTU 1 GM/50 ML RTUPB IV PRN; LIDOCAINE 0.5% INJ-PF (5 MG/ML) 50 ML SDV INJ PRN; RINGERS SOLUTION,LACTATED 1,000 ML IV PRN; SCOPOLAMINE HYDROBROMIDE 1.5 MG PATCH.TD72 TD PRN
[2017-01-07] MEDS ORDERED: LIDOCAINE 1% INJ-PF (10 MG/ML) 30 ML SDV ONE (08:54)
[2017-01-07] MEDS ORDERED: ONDANSETRON HCL INJ/PF 4 MG/2 ML SDV ONE (08:54)
[2017-01-07] MEDS ORDERED: MIDAZOLAM 2 MG/2 ML INJ ONE (08:54)
[2017-01-07] MEDS ORDERED: DEXAMETHASONE SOD PHOSPHATE INJ 4 MG/1 ML VIAL ONE (08:54)
[2017-01-07] MEDS ORDERED: FENTANYL CITRATE INJ/PF 100 MCG/2 ML AMPUL ONE (08:54)
[2017-01-07] MEDS ORDERED: PROPOFOL INJ 200 MG/20 ML VIAL IV ONE (08:55)
[2017-01-07] MEDS ORDERED: IBUPROFEN INJ 800 MG/8 ML VIAL IV ONE (08:55)
[2017-01-07] MEDS ORDERED: PROMETHAZINE HCL INJ 25 MG/1 ML VIAL IV PRN ×2 (09:00)
[2017-01-07] MEDS ORDERED: MEPERIDINE HCL/PF INJ 25 MG/1 ML DISP.SYRIN IV PRN (09:00)
[2017-01-07] MEDS ORDERED: FENTANYL CITRATE INJ/PF 100 MCG/2 ML AMPUL IV PRN ×3 (09:00)
[2017-01-07] MEDS ORDERED: OXYCODONE-ACETAMINOPHEN 5-325 MG TABLET PO PRN ×3 (09:00→10:00)
[2017-01-07] MEDS ORDERED: MORPHINE SULFATE 10 MG/ML INJ IV PRN (09:00)
[2017-01-07] MEDS ORDERED: DIPHENHYDRAMINE HCL 50 MG/ML VIAL IV PRN (09:00)
[2017-01-07] MEDS ORDERED: IBUPROFEN 800 MG TABLET PO SCH (10:00)
[2017-01-07] MEDS ORDERED: PROMETHAZINE HCL INJ 25 MG/1 ML VIAL IM PRN (10:00)
[2017-01-07] MEDS ORDERED: MORPHINE INJ 4 MG DOSE (EDIT ROUTE) INJ PRN (10:00)
--- NOTE | 2017-01-07 10:28 | OPERATIVE REPORT E ---
Operative Report NAME: JACK GE : 1960 AGE: 56Y DATE OF SURGERY: 01/07/2017 ROOM: PREOPERATIVE DIAGNOSIS: POSTMENOPAUSAL BLEEDING. POSTOPERATIVE DIAGNOSIS: ENDOMETRIAL POLYPS X2. OPERATION: Operative hysteroscopy and MyoSure excision of endometrial polyps. SURGEON: WILLIAN AGUILAR M.D. COMPLICATIONS: None. ANESTHESIA: LMAC paracervical block. FINDINGS: That of 2 grape-like smooth-walled endometrial polyps present, endometrial cavity. Small nulliparous endometrial cavity was encountered. INDICATION FOR PROCEDURE: Patient had been bleeding. Outpatient biopsy was precluded due to the atretic nature of her cervix. She had a workup demonstrative of fundal fibroid only. The usual risks of bleeding, infection, anesthesia and damage to organs and tissues discussed, and patient understood. PROCEDURE: The patient taken to the operating room and placed in modified lithotomy position. After surgical time out was performed, EUA performed. Bladder was left undrained and cervix was dilated to admit an operative hysteroscope. MyoSure device was deployed. The polyps that were identified removed in toto and sent to pathology. At completion of procedure, bleeding was nil. Patient awakened, taken to recovery room in stable condition. DICTATING PHYSICIAN: WILLIAN AGUILAR M.D. [id number] PHY#: [id number] ID: [id number] JOB#: [id number] ACCT: [id number] cc:WILLIAN AGUILAR M.D. >
[2017-01-07 12:51] VITALS: BP 117/64
== END 2017-01-07 11:15 | disposition home or self-care (01) ==
LOC: OROUT 07:18
PROVIDERS: ATTEND Specialist
PROC: 0UB98ZX Excision of Uterus, Via Natural or Artificial Opening Endoscopic, Diagnostic (ICD-10-PCS; principal; 2017-01-07 09:15)
DX: N84.0 Polyp of corpus uteri (principal); N95.0 Postmenopausal bleeding; I10 Essential (primary) hypertension; E78.00 Pure hypercholesterolemia, unspecified; E07.9 Disorder of thyroid, unspecified; Z88.1 Allergy status to other antibiotic agents; M19.90 Unspecified osteoarthritis, unspecified site; Z98.84 Bariatric surgery status; Z90.5 Acquired absence of kidney
CPT/HCPCS: 93005; 86900; 86901; 36415; 86850; 85027; 80048; 81001; 88305 ×2; 71020; 93010; 58558; J2250; J0690; J1100; J3010; J3490; J2405; J2704; J1741; 840

== ENCOUNTER → 2017-02-09 | Outpatient (CLI) | payer OTHER ==
--- NOTE | 2017-02-09 15:38 | WOMENS IMAGING REPORT ---
EXAM DESCRIPTION: BILAT SCREENING MAMMO W/CAD COMPLETED DATE/TIME: 02/09/2017 1:57 pm REASON FOR STUDY: ENCOUNTER FOR SCREENING MAMMO Z12.31 Z12.31 ENCNTR SCREEN MAMMOGRAM FOR MALIGNANT NEOPLASM OF DEONNA COMPARISON: None. TECHNIQUE: Standard craniocaudal and mediolateral oblique views of each breast recorded using [employer] acquisition. LIMITATIONS: None. FINDINGS: No masses, calcifications or architectural distortion. No areas of suspicion. Read with the assistance of CAD. .[facility] R2 Cenova Version 1.3 .[facility] - R2 Cenova Version 1.3 .[facility] - R2 Cenova Version 2.4 .[facility] [place] - R2 Cenova Version 2.4 .[facility] - R2 Surgeon/President Version 9.2 IMPRESSION: NORMAL MAMMOGRAM. BIRADS 1. BREAST DENSITY: b. There are scattered areas of fibroglandular density. BIRAD: 1 NEGATIVE RECOMMENDATION: ROUTINE SCREENING COMMENT: The patient has been notified of the results by letter per SA requirements. Additional no tification policies are in place for contacting patient with suspicious or incomplete findings. Quality ID #[id number]: The [employer] recommends an annual screening mammogram for women aged 40 years or over. This facility utilizes a reminder system to ensure that all patients receive reminder letters, and/or direct phone calls for appointments. This includes reminders for routine scr eening mammograms, diagnostic mammograms, or other Breast Imaging Interventions when appropriate. Th is patient will be placed in the appropriate reminder system. The [employer] (ACR) has developed recommendations for screening MRI of the breast s in certain patient populations, to be used in conjunction with mammography. Breast MRI surveillanc e may be appropriate for women with more than 20% lifetime risk of developing breast cancer as deter mined by genetic testing, significant family history of the disease, or history of mantle radiation f or Hodgkins Disease. ACR Practice Guidelines 2008. TECHNICAL DOCUMENTATION: FINDING NUMBER: (1) ASSESSMENT: (1) JOB ID: [id number] [employer]- All Rights Reserved
== END ==
LOC: WI 13:35
PROVIDERS: ATTEND Family Medicine
DX: Z12.31 Encounter for screening mammogram for malignant neoplasm of breast (principal)
CPT/HCPCS: 77067; G0202

== ENCOUNTER → 2018-01-12 | Outpatient (CLI) | payer OTHER ==
--- NOTE | 2018-01-12 14:52 | RADIOLOGY REPORT (SQ) ---
EXAM DESCRIPTION: LUMBAR SPINE COMPLETE COMPLETED DATE/TIME: 01/12/2018 2:02 pm REASON FOR STUDY: OTHER SPONDYLOSIS WITH RADICULOPATHY, LUMBAR REGION M47.26 OTHER SPONDYLOSIS WITH RADICULOPATHY, LUMBAR REGION COMPARISON: None. NUMBER OF VIEWS: Five views including obliques. TECHNIQUE: AP, lateral, oblique, and sacral radiographic images acquired of the lumbar spine. LIMITATIONS: None. FINDINGS: MINERALIZATION: Normal. SEGMENTATION: Normal. No transitional anatomy. ALIGNMENT: There is grade 1 anterolisthesis of L4 in relation to L5. VERTEBRAE: Maintained height. No fracture or worrisome bone lesion. DISCS: There is almost complete loss of the L3-L4 and to a lesser extent the L4-L5 disc space heights . There is anterior osteophytic lipping at multiple levels. POSTERIOR ELEMENTS: Pedicles and facets are intact. No pars defect or posterior arch defects. Degen erative changes are identified in the facet articulations at the L4 and L5 levels HARDWARE: None in the spine. PARASPINAL SOFT TISSUES: Normal. PELVIS: Intact as visualized. No fractures or worrisome bone lesions. SI joints intact. OTHER: No other significant finding. IMPRESSION: Degenerative changes as noted above TECHNICAL DOCUMENTATION: JOB ID: [id number] [employer]- All Rights Reserved Reading location - IP/workstation name: [email or web address]
== END ==
LOC: OD 13:27
PROVIDERS: ATTEND Family Medicine
DX: M47.26 Other spondylosis with radiculopathy, lumbar region (principal)
CPT/HCPCS: 72110

== ENCOUNTER 2019-04-25 12:21 | Emergency (ER) | payer OTHER ==
[2019-04-25] MEDS ORDERED: DIPH/PERTUSS(ACELL)/TETANUS VAC/PF 0.5 ML SYR (>=10YO) IM ONE ×2 (12:49→13:09)
--- NOTE | 2019-04-25 12:49 | ER Document Report ---
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 Patient complains of bilateral knee pain, right arm and right wrist pain. Patient with multiple abrasions to extremities. Patient denies any head injury or loss of consciousness. I have greeted and performed a rapid initial assessment of this patient. A comprehensive ED assessment and evaluation of the patient, analysis of test results and completion of the medical decision making process will be conducted by additional ED providers. TRAVEL OUTSIDE OF THE [place] IN LAST 30 DAYS: No - Related Data Allergies/Adverse Reactions: tetracycline Allergy (Verified 04/25/19 12:44) Rash Past Medical History - Past Medical History Cardiac Medical History: Reports: Hx Hypercholesterolemia, Hx Hypertension - ON MEDS Denies: Hx Coronary Artery Disease, Hx Heart Attack Pulmonary Medical History: Denies: Hx Asthma, Hx Bronchitis, Hx COPD, Hx Pneumonia Neurological Medical History: Denies: Hx Cerebrovascular Accident, Hx Seizures Endocrine Medical History: Denies: Hx Diabetes Mellitus Type 2 Renal/ Medical History: Denies: Hx Peritoneal Dialysis Musculoskeltal Medical History: Denies Hx Arthritis Past Surgical History: Reports: Hx Abdominal Surgery - Gastric bypass, Hx Gastric Bypass Surgery, Hx Kidney (Renal Surgery) - partial nephrectomy, Other - Partial nephrectomy for benign tumor Discectomy - Immunizations Hx Diphtheria, Pertussis, Tetanus Vaccination: Yes Physical Exam - General General appearance: Appears well, Alert Notes: Abrasions to bilateral knees, right elbow. Tenderness with swelling to right wrist, 2+ radial pulse Doctor's Discharge - Discharge Referrals: COOPER MONTENEGRO MD [Primary Care Provider] - Follow up as needed
--- NOTE | 2019-04-25 13:43 | RADIOLOGY REPORT (SQ) ---
EXAM DESCRIPTION: HUMERUS RIGHT COMPLETED DATE/TIME: 04/25/2019 1:34 pm REASON FOR STUDY: fall COMPARISON: None. NUMBER OF VIEWS: Two views. TECHNIQUE: Two radiographic images were acquired of the right humerus to include elbow and shoulder in at least one projection. LIMITATIONS: None. FINDINGS: MINERALIZATION: Normal. BONES: No acute fracture or dislocation. No worrisome bone lesions. SOFT TISSUES: No obvious swelling or foreign body. OTHER: No other significant finding. IMPRESSION: NEGATIVE STUDY OF THE RIGHT HUMERUS. NO RADIOGRAPHIC EVIDENCE OF ACUTE INJURY. TECHNICAL DOCUMENTATION: JOB ID: [id number] [employer]- All Rights Reserved Reading location - IP/workstation name: [email or web address]
--- NOTE | 2019-04-25 13:45 | RADIOLOGY REPORT (SQ) ---
EXAM DESCRIPTION: WRIST RIGHT 3 VIEWS COMPLETED DATE/TIME: 04/25/2019 1:34 pm REASON FOR STUDY: tederness to palpation COMPARISON: None. NUMBER OF VIEWS: Three views. TECHNIQUE: AP, lateral, and oblique radiographic images acquired of the right wrist. LIMITATIONS: None. FINDINGS: MINERALIZATION: Osteopenia. BONES: Comminuted but largely nondisplaced distal radius fracture. Fracture extends through the collins cular surface. SOFT TISSUES: No soft tissue swelling. No foreign body. OTHER: No other significant finding. IMPRESSION: Comminuted distal radius fracture. TECHNICAL DOCUMENTATION: JOB ID: [id number] [employer]- All Rights Reserved Reading location - IP/workstation name: [email or web address]
--- NOTE | 2019-04-25 13:47 | ER Document Report ---
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 She landed on all 4 extremities, injuring primarily her right wrist, but also her right elbow, shoulder, both knees. Patient has had bilateral knee replacements a couple of years ago. She was not able to ambulate and EMS was called to transport her here. Patient denies any head or neck injury. No neurologic deficits or loss of consciousness. Denies any chest pains or shortness of breath or difficulty breathing. Patient is right-hand dominant. TRAVEL OUTSIDE OF THE [place] IN LAST 30 DAYS: No - Related Data Allergies/Adverse Reactions: tetracycline Allergy (Verified 04/25/19 12:44) Rash Home Medications: losartan, crestor, vivance, hctz, prempro, asa, fishoil, vit d, celexa, celebrex, coq10 Past Medical History - General Information source: Patient - Social History Smoking Status: Never Smoker Chew tobacco use (# tins/day): No Frequency of alcohol use: Occasional Drug Abuse: None Family History: CAD, CVA, DM, Hyperlipidemia, Hypertension Patient has suicidal ideation: No Patient has homicidal ideation: No - Past Medical History Cardiac Medical History: Reports: Hx Hypercholesterolemia, Hx Hypertension - ON MEDS Neurological Medical History: Denies: Hx Cerebrovascular Accident, Hx Seizures Endocrine Medical History: Denies: Hx Diabetes Mellitus Type 2 Renal/ Medical History: Denies: Hx Peritoneal Dialysis Musculoskeletal Medical History: Denies Hx Arthritis Past Surgical History: Reports: Hx Abdominal Surgery - Gastric bypass, Hx Gastric Bypass Surgery, Hx Kidney (Renal Surgery) - partial nephrectomy, Hx Orthopedic Surgery - dana knee replacement, Other - Partial nephrectomy for benign tumor Discectomy - Immunizations Hx Diphtheria, Pertussis, Tetanus Vaccination: Yes Hx Pneumococcal Vaccination: 07/07/15 Review of Systems - Review of Systems Notes: REVIEW OF SYSTEMS: CONSTITUTIONAL : Denies fever. EENT: Denies eye, ear, nose or mouth or throat pain or other symptoms. CARDIOVASCULAR: Denies chest pain. RESPIRATORY: Denies cough, chest congestion, or shortness of breath. GASTROINTESTINAL: Denies abdominal pain or nausea, vomiting, or diarrhea. GENITOURINARY: Denies difficulty or painful urinating, urinary frequency, blood in urine. MUSCULOSKELETAL: See HPI. SKIN: Denies rash or skin lesions. NEUROLOGICAL: Denies LOC or altered mental status. Denies headache. Denies sensory loss or motor deficits. ALL OTHER SYSTEMS REVIEWED AND NEGATIVE. Physical Exam - Vital signs Vitals: BP 172/77 H 04/25/19 12:31 Interpretation: Normal Notes: PHYSICAL EXAMINATION: GENERAL: Well-appearing, brought in by EMS, received fentanyl IV from EMS. HEAD: Atraumatic, normocephalic. EYES: Pupils equal round and reactive to light, extraocular movements intact. ENT: oropharynx clear without exudates. Moist mucous membranes. NECK: Normal range of motion, supple. LUNGS: Breath sounds clear and equal bilaterally. No rib tenderness HEART: Regular rate and rhythm without murmurs. ABDOMEN: Soft, nontender. No guarding or rebound. No masses. BACK: No tenderness throughout entire back. EXTREMITIES: Swollen and very painful to touch right wrist. No other significant deformity of that joint. Elbow with full range of motion and shoulder with full range of motion. Both knees are tender to anterior touching, but no significant injury of either knee noted. Patient has had bilateral knee replacements couple of years ago. NEUROLOGICAL: Normal speech, normal gait. Normal sensory, motor, and reflex exams. Awake, alert, and oriented x3. PSYCH: Normal mood, normal affect. SKIN: Warm, dry, no rashes. One small superficial abrasion/cut near the right olecranon, about 2 cm in length and superficial not requiring sutures. Course - Re-evaluation Re-evalutation: 04/25/19 19:[address] Nesbitt, who is on-call for orthopedics, and he said that he would contact patient to arrange for surgical care of her fracture right radius. 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 - Vital Signs Vital signs: Temp Pulse Resp BP Pulse Ox 97.8 F 71 20 179/79 H 100 04/25/19 12:46 04/25/19 12:46 04/25/19 16:01 04/25/19 16:01 04/25/19 16:01 Procedures - Immobilization Right Wrist Pre-Proc Neuro Vasc Exam: Normal Immobilizer type: Sugar tong Performed by: PCT Post-Proc Neuro Vasc Exam: Normal, Unchanged from pre-exam Discharge - Discharge Clinical Impression: Fracture of right radius, Abrasions of multiple sites, Contusion of multiple sites Condition: Stable Disposition: HOME, SELF-CARE Additional Instructions: Fractured Radius The bone called the radius is fractured. This type of fracture is typically caused by falling onto the outstretched hand. The fracture is not serious, however, and should heal well with adequate protection. Your physician's evaluation shows the bone is in good position to heal. A cast or splint is used to protect the fracture. For the first few days after the injury, the arm should be elevated and ice packed. Healing takes from three to eight weeks, depending on the age of the patient and the seriousness of the fracture. Your doctor has explained the treatment plan. It's important that you follow up as instructed to prevent complications. Call the doctor or return at once if severe pain or swelling occur, or if the hand becomes numb, swollen, or discolored. SPLINT PRECAUTIONS: A splint has been placed. This will protect the area while healing begins. Your problem does NOT normally require a cast. It MUST, however, be held still! Keep the splint on ALL THE TIME until instructed to remove it by the doctor. As you begin to use the area, be careful. You shouldn't do anything which causes discomfort -- you may disturb the injury even with the splint in place. After the initial period of rest and elevation, if splint does not prevent pain when you move, come back. You may require placement of a different splint, or a cast. If there is unexpected severe pain, or numbness, discoloration, or swelling beyond the splint, you should return at once. If you feel that the splint has broken or become loose, come back. ICE & ELEVATION: Apply ice packs frequently against the painful area. Many different schedules are recommended, such as "20 minutes on, 20 minutes off" or "one hour ice, two hours rest." If you need to work, you may need to go longer between ice treatments. You should plan to have the area ice packed AT LEAST one-fourth of the time. The ice should be applied over the wrap, tape, or splint, or over a layer of cloth -- not directly against the skin. Some ice bags have a built-in cloth and can be put directly on the skin. Your injured part should be elevated as much as possible over the next 48 hours. Try to keep the injury above the level of the heart. Avoid use of the injured area. Elevation and rest will decrease the swelling. MUSCLE STRAIN: You have strained a muscle -- torn the fibers within the muscle. This often occurs with strenuous exertion, or during an injury that suddenly stretches the muscle. The seriousness of a strain varies. Some strains heal within days, others cause problems for months. X-rays cannot show a muscle strain. X-rays are taken only if symptoms suggest that a fracture could be present. The usual treatment of a muscle strain is rest and ice packs. Sometimes, a sling, splint, or crutches may be necessary to rest the muscle. The muscle can be used again once pain subsides. Severe strains require a special exercise and stretching program to prevent permanent stiffness and disability. Your doctor will advise you if this will be necessary. Call the doctor immediately if pain or swelling becomes severe, or if numbness or discoloration develop. CONTUSION: Your injury has resulted in a contusion -- a crushing of the deep tissues. No injury to important structures was detected during the physician's exam. Contusions vary in the amount of pain they cause, and in the length of time required for healing. Typically, the area will become bruised, and will remain painful to touch for two or three weeks. However, most patients are back to working and playing within a few days. After the initial period of rest and cold-packs, your symptoms (together with the doctor's recommendations) will determine how rapidly you can get back to full activity. Usually this means "do what feels okay, but don't do things that hurt." If re-examination was recommended, it's important to follow up as instructed. Call the doctor or return any time if pain increases, if swelling becomes severe, if you develop numbness or weakness in an injured extremity, or if any other alarming symptoms occur. ABRASIONS: An abrasion is a scraping injury of the skin. Some scarring may result. The seriousness of an abrasion is not always obvious at first. Hidden tissue damage may be present and infection may occur despite proper care. Complete healing may take from ten days to as long as a month. The healing time depends on the depth of the abrasion, and on the amount of crushing of underlying tissues from the injury. Keep the wound and dressing clean. Do not shower or bathe the area until okayed by the doctor. If the dressing gets wet, remove it and blot the wound dry, then reapply a clean dressing. Dressings should be changed every day. Sunscreen should be used for six months after the skin is healed. If any signs of infection occur (swelling, redness, increasing tenderness, red streaks, profuse purulent drainage from the abrasion, tender lumps in the armpit or groin above the abrasion, or fever), see the doctor immediately. PAIN MEDICATION INJECTION: You have received an injection of a pain medication. You should experience significant pain relief within 45 minutes. If this medication is a narcotic, it will impair your judgement, slow your reaction time and make you sleepy (as well as relieve your pain). Narcotics also can cause nausea. You should not drive, work with machinery, or perform any task requiring mental alertness until all effects of the medication are gone -- six to eight hours. Do not take any alcohol, or sedatives, and do not take any other medication without checking with your physician. USE OF TYLENOL (ACETAMINOPHEN): Acetaminophen may be taken for pain relief or fever control. It's much safer than aspirin, offering a wider range of "safe" dosages. It is safe during . Some brand names are Tylenol, Panadol, Datril, Anacin 3, Tempra, and Liquiprin. Acetaminophen can be repeated every four hours. The following are maximum recommended dosages: WEIGHT Dose Drops Elixir Chewabl e(80mg) (LBS.) drprs=droppers tsp=teaspoon >89 pounds or adults 650 mg to 900 mg Acetaminophen can be repeated every four hours. Maximum dose not to exceed 4000 mg a day. These maximum recommended dosages are slightly higher than the dosages written on the product container, but these dosages are very safe and below the toxic dosage for acetaminophen. ICE PACKS: Apply ice packs frequently against the painful area. Many different schedules are recommended, such as "20 minutes on, 20 minutes off" or "one hour ice, two hours rest." If you need to work, you may need to go longer between ice treatments. You should plan to have the area ice packed AT LEAST one fourth of the time. The ice should be applied over the wrap, tape, or splint, or over a layer of cloth -- not directly against the skin. Some ice bags have a built-in cloth and can be put directly on the skin. ORAL NARCOTIC MEDICATION: You have been given a prescription for pain control. This medication is a narcotic. It's best taken with food, as nausea can result if taken on an empty stomach. Don't operate machinery or drive within six hours of taking this medication. Do not combine this medicine with alcohol, or with any medication which can cause sedation (such as cold tablets or sleeping pills) unless you get permission from the physician. Narcotics tend to cause constipation. If possible, drink plenty of fluids and eat a diet high in fiber and fruits. Antinausea Medication You have been given a medication to suppress nausea and vomiting. This type of medication can be given as a shot, pill, or suppository. It will usually last for many hours. Pills and shots usually last six to eight hours, suppositories last about 12 hours. For the typical illness, only one or two doses of the medication may be necessary. Mild lightheadedness may occur. This type of medicine can cause drowsiness. Do not drive or operate dangerous machinery while under its influence. Do not mix with alcohol. See your doctor at once if you have muscle spasms or tightness, or uncontrollable motions (particularly of the neck, mouth, or jaw). Persistent vomiting or severe lightheadedness should also be evaluated by the physician. FOLLOW-UP CARE: If you have been referred to a physician for follow-up care, call the physicians office for an appointment as you were instructed or within the next two days. If you experience worsening or a significant change in your symptoms, notify the physician immediately or return to the Emergency Department at any time for re-evaluation. You have an injury to your right wrist which likely will require surgery. I provided you with the contact information with Dr. Nesbitt, who is on-call for orthopedics at this hospital today. He will be in touch with you to schedule surgery for your wrist. If you choose to go to someone else, that is fine with us. Prescriptions: Hydromorphone HCl [Dilaudid 2 mg Tablet] 1 - 2 mg PO Q4HP PRN #20 tablet PRN Reason: Ondansetron [Zofran Odt 4 mg Tablet] 1 - 2 tab PO Q4H PRN #15 tab.rapdis PRN Reason: For Nausea/Vomiting Forms: Return to Work Referrals: KIM NESBITT MD [ACTIVE PROVISIONAL STAFF] - Follow up tomorrow
--- NOTE | 2019-04-25 13:49 | RADIOLOGY REPORT (SQ) ---
EXAM DESCRIPTION: KNEE RIGHT 4 VIEWS COMPLETED DATE/TIME: 04/25/2019 1:34 pm REASON FOR STUDY: fall COMPARISON: None. NUMBER OF VIEWS: Four views. TECHNIQUE: AP, lateral, and both oblique radiographic images acquired of the right knee. LIMITATIONS: None. FINDINGS: MINERALIZATION: Normal. BONES: No acute fracture or dislocation. No worrisome bone lesions. JOINT: Prior total knee arthroplasty. SOFT TISSUES: No soft tissue swelling. No radio-opaque foreign body. OTHER: No other significant finding. IMPRESSION: Postsurgical changes with prior knee total arthroplasty. No acute findings. TECHNICAL DOCUMENTATION: JOB ID: [id number] [employer]- All Rights Reserved Reading location - IP/workstation name: [email or web address]
[2019-04-25] MEDS ORDERED: HYDROMORPHONE HCL INJ/PF 2 MG/ML AMPULE IV ONE (13:50)
--- NOTE | 2019-04-25 13:50 | RADIOLOGY REPORT (SQ) ---
EXAM DESCRIPTION: KNEE LEFT 4 VIEW COMPLETED DATE/TIME: 04/25/2019 1:34 pm REASON FOR STUDY: fall COMPARISON: None. NUMBER OF VIEWS: Four views. TECHNIQUE: AP, lateral, and both oblique radiographic images acquired of the left knee. LIMITATIONS: None. FINDINGS: MINERALIZATION: Normal. BONES: No acute fracture or dislocation. No worrisome bone lesions. JOINT: Prior total knee arthroplasty. SOFT TISSUES: No soft tissue swelling. No radio-opaque foreign body. OTHER: No other significant finding. IMPRESSION: Postsurgical changes. No acute findings. TECHNICAL DOCUMENTATION: JOB ID: [id number] [employer]- All Rights Reserved Reading location - IP/workstation name: [email or web address]
[2019-04-25 17:09] VITALS: BP 179/79
== END 2019-04-25 16:50 | disposition home or self-care (01) ==
LOC: ER 12:21
DX: S52.591A Other fractures of lower end of right radius, initial encounter for closed fracture (principal); S41.111A Laceration without foreign body of right upper arm, initial encounter; T14.8XXA Other injury of unspecified body region, initial encounter; W19.XXXA Unspecified fall, initial encounter; Y93.89 Activity, other specified; Y92.219 Unspecified school as the place of occurrence of the external cause; Y99.0 Civilian activity done for income or pay; I10 Essential (primary) hypertension; E78.00 Pure hypercholesterolemia, unspecified; Z96.653 Presence of artificial knee joint, bilateral; Z79.899 Other long term (current) drug therapy; Z79.82 Long term (current) use of aspirin; Z98.84 Bariatric surgery status; Z88.1 Allergy status to other antibiotic agents
CPT/HCPCS: 99283; 90471; 96374; 73060; 73564 ×2; 73110; 90715; 29125; J1170

== ENCOUNTER → 2019-05-04 | Outpatient (CLI) | payer OTHER | LOC: LAB 11:59 | PROVIDERS: ATTEND Orthopaedic Surgery | DX: Z01.812 Encounter for preprocedural laboratory examination (principal) | CPT/HCPCS: 36415; 80051 ==